=== PATIENT | female | born 1965 ===

== ENCOUNTER 2025-06-25 11:23 | Day surgery (SDC) | payer OTHER ==
[~2025-06-25] VITALS: Ht 157.5 cm; Wt 117.3 kg
[~2025-06-25 11:23] MED LIST: MULTI-VITAMIN1 EAC2 PO; Magnesium250 MG PO; OREGANO OIL PO; VITAMIN D5000 UNIT PO; [UNRECOGNIZED DRUG - OTHER] PO
[2025-06-25 11:57] VITALS: BP 155/85
--- NOTE | 2025-06-25 12:00 | NUR ---
Ambulatory in Day Surgery. History, Chart, Medications and Allergies reviewed before start of procedure. Patient confirms NPO status and agrees with scheduled surgery. Pre-Op teaching done. Pt verbalizes understanding. Patient States Post-Procedure ride home has been arranged.
--- NOTE | 2025-06-25 12:55 | NUR ---
06/25/25 [address] Avendano History, Chart, Medications and Allergies reviewed before start of procedure.MONITOR INTACT WITH CONTINUOUS PULSE OXIMETRY, CONTINUOUS END TITAL CO2, 3-LEAD EKG AND INTERMITTENT BLOOD PRESSURE.3-LEAD EKG REVIEWED WITH PHYSICIAN PRIOR TO START OF PROCEDURE.O2 VIA POM INTACT THROUGHOUT SEDATION/PROCEDURE.See Anesthesia record.
[2025-06-25 13:40] VITALS: BP 129/80
--- NOTE | 2025-06-25 13:58 | NUR ---
Discharge instructions reviewed with patient. Patient verbalizes understanding. Copy given to patient to take home. Patient States Post-Procedure ride home has been arranged. Discharged via wheelchair to private car for ride home.
== END 2025-06-25 13:55 | disposition home or self-care (01) ==
LOC: ORSCMMR 11:23
DX: K92.1 Melena (principal); R13.10 Dysphagia, unspecified; Z98.84 Bariatric surgery status; Z86.0100 Personal history of colon polyps, unspecified; K64.8 Other hemorrhoids; K57.30 Diverticulosis of large intestine without perforation or abscess without bleeding; K44.9 Diaphragmatic hernia without obstruction or gangrene; K29.70 Gastritis, unspecified, without bleeding; F43.10 Post-traumatic stress disorder, unspecified; F31.9 Bipolar disorder, unspecified; Z87.891 Personal history of nicotine dependence; E66.01 Morbid (severe) obesity due to excess calories; Z68.42 Body mass index [BMI] 45.0-49.9, adult
CPT/HCPCS: 88305; 88341; 88342; J2704; J7120